=== PATIENT | female | born 1950 | race American Indian/Alaskan Native ===

== ENCOUNTER 2022-03-03 09:33 | Outpatient (CLI) | payer MEDICARE ==
--- NOTE | 2022-03-03 14:34 | Nuclear Medicine Report ---
NUCLEAR MEDICINE HEPATOBILIARY SCAN INDICATION: K21.9 R10.11. Acute right upper quadrant pain and weight loss TECHNIQUE: Radiotracer: Tc-99m mebrofenin (by IV): 5.5 mCi. Gallbladder Stimulant: 8 ounces of ensure. FINDINGS: Hepatic activity: Normal. Biliary activity: Normal. Common bile duct activity at 10 minutes. Gallbladder activity: Normal at 20 minutes. Small bowel activity: Normal at 20 minutes. Gallbladder ejection fraction was 60 % (greater than 35% is considered normal). IMPRESSION: 1. No biliary obstruction. 2. Normal gallbladder ejection fraction. Signer Name: Keanu Villalpando MD Signed: 03/03/2022 2:30 PM Workstation Name: [id number]
== END 2022-03-03 09:34 | disposition home or self-care (01) ==
LOC: NM 09:33
PROVIDERS: ATTEND Student in an Organized Health Care Education/Training Program
DX: K21.9 Gastro-esophageal reflux disease without esophagitis (principal); R10.11 Right upper quadrant pain; R10.13 Epigastric pain; R63.4 Abnormal weight loss
CPT/HCPCS: 78227; A9537